=== PATIENT | female | born 1980 | race Caucasian/White ===

== ENCOUNTER 2022-12-07 16:15 | Emergency (ER) | payer BC ==
[2022-12-07] MEDS ORDERED: Sodium Chloride 0.9% 1,000 ML IV ONE (16:19)
[2022-12-07] MEDS ORDERED: Sodium Chloride 0.9% 10 ML Syringe FLUSH PRN (16:20)
[2022-12-07 16:33] LABS: BASOPHILS ABSOLUTE AUTO 0.01 K/uL (0.00-0.20); BASOPHILS PERCENT AUTO 0.1 % (0.0-2.0); EOSINOPHILS ABSOLUTE AUTO 0.02 K/uL (0.00-0.50); EOSINOPHILS PERCENT AUTO 0.3 % (0.0-5.0); HEMATOCRIT 37.3 % (34.0-46.0); HEMOGLOBIN 12.5 g/dL (11.7-15.5); LYMPHOCYTES ABSOLUTE AUTO 1.78 K/uL (0.50-3.50); LYMPHOCYTES PERCENT AUTO 26.3 % (10.0-50.0); MEAN CORPUSCULAR HGB CONC 33.5 g/dL (31.7-36.0); MEAN CORPUSCULAR VOLUME 86.5 fL (84.0-98.0); MONOCYTES ABSOLUTE AUTO 0.39 K/uL (0.00-1.00); MONOCYTES PERCENT AUTO 5.8 % (2.0-14.0); NEUTROPHILS ABSOLUTE AUTO 4.57 K/uL (1.40-7.00); NEUTROPHILS PERCENT AUTO 67.5 % (45.0-80.0); PLATELET COUNT,PLT 193 K/uL (150-350); RED BLOOD CELL COUNT 4.31 M/uL (3.77-5.09); RED CELL DISTRIBUTION WIDTH 14.7 % (11.2-14.1); WHITE BLOOD CELL COUNT,WBC 6.8 K/uL (4.0-10.2)
[2022-12-07 16:54] LABS: ALANINE AMINOTRANSFERASE,ALT 13 U/L (12-78); ALKALINE PHOSPHATASE 29 IU/L (46-116); ANION GAP 7.5 meq/L (7-15); ASPARTATE AMNIOTRANSFERASE,AST 18 U/L (15-37); BILIRUBIN TOTAL 0.2 mg/dL (0.2-1.0); BLOOD UREA NITROGEN,BUN 18 mg/dL (7-18); CARBON DIOXIDE,CO2 26.5 mmol/L (21.0-32.0); CHLORIDE,CL 107 mmol/L (98-107); CREATININE 0.71 mg/dL (0.51-1.17); POTASSIUM,K 3.6 mmol/L (3.5-5.1); PROTEIN TOTAL,TP 5.2 g/dL (6.4-8.2); SODIUM,NA 141 mmol/L (136-145)
[2022-12-07 17:08] LABS: CALCIUM 7.2 mg/dL (8.5-10.1); ESTIMATED GFR 108 mL/min (>=60); GLUCOSE RANDOM 131 mg/dL (70-99); MAGNESIUM 1.3 mg/dL (1.8-2.4)
[2022-12-07] MEDS ORDERED: Magnesium Sulfate/Water 2 GM in Premix Bag 1 BAG IV ONE (17:12)
[2022-12-07 17:33] LABS: APPEARANCE,URINE SLIGHTLY CLOUDY; BILIRUBIN,URINE NEGATIVE (NEGATIVE); COLOR,URINE YELLOW; GLUCOSE,URINE NEGATIVE (NEGATIVE); KETONES,URINE NEGATIVE (NEGATIVE); LEUKOCYTE ESTERASE,URINE NEGATIVE (NEGATIVE); NITRITE,URINE NEGATIVE (NEGATIVE); OCCULT BLOOD,URINE LARGE (NEGATIVE); PH,URINE 8.5 (5.0-9.0); PROTEIN,URINE 30 mg/dL (NEGATIVE)
[2022-12-07 17:40] LABS: BACTERIA,URINE FEW /HPF (NONE TO FEW); EPITHELIAL CELLS,URINE MANY /LPF
[2022-12-07 18:18] VITALS: BP 105/69; PULSE 76
== END 2022-12-07 19:20 | disposition home or self-care (01) ==
LOC: LL.ED 16:15
DX: E86.0 Dehydration (principal); E83.42 Hypomagnesemia; E83.51 Hypocalcemia; E77.8 Other disorders of glycoprotein metabolism; R55 Syncope and collapse
CPT/HCPCS: 36415; 80053; 81001; 83605; 83735; 85025; 93005; 93010; 96361; 96365; 99284; 99284-25; J3475; J7030

== ENCOUNTER 2024-02-22 01:29 | Emergency (ER) | payer OTHER, BC | END 2024-02-22 02:15 | disposition home or self-care (01) | LOC: LL.ED 01:29 | DX: S57.82XA Crushing injury of left forearm, initial encounter (principal); S67.22XA Crushing injury of left hand, initial encounter; W23.0XXA Caught, crushed, jammed, or pinched between moving objects, initial encounter; Z79.899 Other long term (current) drug therapy | CPT/HCPCS: 73090-LT; 73130-LT; 99283 ==